=== PATIENT | male | born 1970 | race African-American/Black ===

== ENCOUNTER 2024-12-26 18:45 | Emergency (ER) | payer MEDICARE, MEDICAID ==
[~2024-12-26] VITALS: Ht 188 cm; Wt 123.0 kg
[~2024-12-26 18:45] MED LIST: CHOL100044 PO; LIP40 PO; METF-414 PO; PERP8TAB6 PO
[2024-12-26 19:09] VITALS: O2SAT 97
[2024-12-26 21:43] VITALS: BP 143/97; PULSE 85; RESP 16; TEMP 36.5; O2SAT 95
== END 2024-12-26 21:48 | disposition home or self-care (01) ==
LOC: ER 18:45
DX: M25.511 Pain in right shoulder (principal); E11.9 Type 2 diabetes mellitus without complications; F20.9 Schizophrenia, unspecified; J45.909 Unspecified asthma, uncomplicated; M19.90 Unspecified osteoarthritis, unspecified site; Z79.84 Long term (current) use of oral hypoglycemic drugs; Z79.899 Other long term (current) drug therapy
CPT/HCPCS: 73060; 99283